=== PATIENT | male | born 1960 | race Caucasian/White ===

== ENCOUNTER 2017-01-16 23:50 | Inpatient (IN) | payer MEDICAID, OTHER ==
[~2017-01-16] VITALS: Ht 182.9 cm; Wt 126.6 kg
[~2017-01-16 23:50] MED LIST: ASPI-1159 PO; CYMBALTA PO; DIVA500T3 PO; FLUO40CA8 PO; HYDR50CA PO; LISINOPRIL PO; OMEPRAZOLE PO; QUET400T PO
[2017-01-17 00:31] LABS: BG BASE EXCESS -6.1 mmol/L (-2.0-2.0); BG CARBOXYHEMOGLOBIN 0.3 % (0.5-1.5); BG DEOXYHEMOGLOBIN 8.2 % (0.0-5.0); BG FRACTION INSPIRED OXYGEN 32; BG HCO3 ACT 18.8 mmol/L (22.0-26.0); BG OXYGEN SATURATION 91.8 % (92.0-98.5); BG OXYHEMOGLOBIN 91.5 % (94.0-97.0); BG PCO2 35.2 mmHg (35.0-45.0); BG PH 7.346 (7.350-7.450); BG PO2 72.2 mmHg (75.0-100.0); BG SAMPLE SITE RIGHT RADIAL; BG TOTAL HEMOGLOBIN 11.7 g/dL (12.0-18.0); BG VENT MODE NASAL CANNULA
[2017-01-17 00:34] LABS: EOSINOPHILS % 2.4 % (0.0-5.0); HEMATOCRIT. 33.1 % (42.0-52.0); HEMOGLOBIN. 11.1 g/dL (14.0-18.0); LYMPHOCYTES % 42.7 % (20.0-50.0); MEAN CORPUSCULAR HEMOGLOBIN 27.6 pg (28.0-32.0); MEAN CORPUSCULAR VOLUME 82.5 fL (80.0-94.0); MEAN PLATELET VOLUME 10.4 fl (7.4-10.4); MONOCYTES % 5.2 % (2.0-8.0); NEUTROPHILS % 48.7 % (40.0-76.0); PLATELET 104 x1000/uL (130-400); RED BLOOD CELL COUNT 4.01 mill/uL (4.7-6.1); RED CELL DISTRIBUTION WIDTH 14.9 % (11.6-14.6)
[2017-01-17 00:40] LABS: INR 1.1; PROTHROMBIN TIME 11.7 sec (9.4-11.6)
[2017-01-17 00:49] LABS: CARBON DIOXIDE 22 mEq/L (21-32); CHLORIDE 107 mEq/L (98-107); ETHANOL BLOOD 23 mg/dL; TROPONIN I < 0.02 ng/mL (0.00-0.04)
[2017-01-17 01:53] LABS: *AMPHETAMINES SCREEN URINE NEGATIVE (NEGATIVE); *BARBITURATES SCREEN URINE NEGATIVE (NEGATIVE); *BENZODIAZEPINES SCREEN URINE PRESUMTIVE POSITIVE (NEGATIVE); *COCAINE SCREEN URINE NEGATIVE (NEGATIVE); CANNABINOID URINE SCREEN NEGATIVE (NEGATIVE); METHADONE URINE SCREEN NEGATIVE (NEGATIVE); OPIATES URINE SCREEN NEGATIVE (NEGATIVE); PHENCYCLIDINE URINE SCREEN NEGATIVE (NEGATIVE)
[2017-01-17] MEDS ORDERED: ALBUTEROL (0.5%) 2.5MG/0.5ML NEB HHN ONE (02:15)
[2017-01-17] MEDS ORDERED: METHYLPREDNISOLONE SOD SUCC 125 MG/2 ML VIAL IV ONE (02:15)
[2017-01-17 04:30] VITALS: BP 125/88
[2017-01-17 06:06] VITALS: BP 125/88
[2017-01-17 08:00] VITALS: BP 123/82
[2017-01-17] MEDS ORDERED: ONDANSETRON HCL 4MG/2ML VIAL IV PRN (11:45)
[2017-01-17] MEDS ORDERED: IPRATROPIUM/ALBUTEROL 0.5-3(2.5)MG/3ML NEB INH PRN (11:45)
[2017-01-17] MEDS ORDERED: ACETAMINOPHEN 325MG TABLET PO PRN (11:45)
[2017-01-17 12:00] VITALS: BP 119/80
[2017-01-17] MEDS: IPRATROPIUM/ALBUTEROL 0.5-3(2.5)MG/3ML NEB HHN SCH ×3 (12:50→20:55)
[2017-01-17] MEDS: ENOXAPARIN 40MG/0.4ML SYR SUBCUT SCH (13:21)
[2017-01-17] MEDS: METHYLPREDNISOLONE SOD SUCC 125 MG/2 ML VIAL IV SCH ×2 (13:21→22:24)
[2017-01-17] MEDS: SODIUM CHLORIDE 0.9% 1,000 ML IV SCH (13:22)
[2017-01-17] MEDS: HYDROCODONE/ACETAMINOPHEN 5/325MG TABLET PO PRN ×2 (14:20→22:23)
[2017-01-17 14:25] LABS: CLARITY URINE CLEAR (CLEAR); COLOR URINE YELLOW (YELLOW); GLUCOSE URINE NEGATIVE (NEGATIVE); KETONES URINE 1+ (NEGATIVE); LEUKOCYTE ESTERASE URINE NEGATIVE (NEGATIVE); NITRITE URINE NEGATIVE (NEGATIVE); OCCULT BLOOD URINE NEGATIVE (NEGATIVE); PROTEIN URINE NEGATIVE (NEGATIVE); SPECIFIC GRAVITY URINE 1.025 (1.005-1.030); UROBILINOGEN URINE 0.2 E.U./dL (0.2-1.0)
[2017-01-17 16:00] VITALS: BP 129/85
[2017-01-17 20:00] VITALS: BP 124/77
[2017-01-17 20:08] LABS: *AMPHETAMINES SCREEN URINE NEGATIVE (NEGATIVE); *BARBITURATES SCREEN URINE NEGATIVE (NEGATIVE); *BENZODIAZEPINES SCREEN URINE PRESUMTIVE POSITIVE (NEGATIVE); *COCAINE SCREEN URINE NEGATIVE (NEGATIVE); CANNABINOID URINE SCREEN NEGATIVE (NEGATIVE); METHADONE URINE SCREEN NEGATIVE (NEGATIVE); OPIATES URINE SCREEN NEGATIVE (NEGATIVE); PHENCYCLIDINE URINE SCREEN NEGATIVE (NEGATIVE)
[2017-01-18] VITALS: BP 126/81
[2017-01-18] MEDS: IPRATROPIUM/ALBUTEROL 0.5-3(2.5)MG/3ML NEB HHN SCH ×4 (01:10→11:54)
[2017-01-18] MEDS ORDERED: ZOLPIDEM TARTRATE 5MG TABLET PO PRN (01:45)
[2017-01-18] MEDS: GUAIFENESIN 200MG/10ML SUGAR FREE UDC PO PRN ×2 (02:27→17:02)
[2017-01-18] MEDS: SODIUM CHLORIDE 0.9% 1,000 ML IV SCH ×2 (02:28→11:59)
[2017-01-18] MEDS: METHYLPREDNISOLONE SOD SUCC 125 MG/2 ML VIAL IV SCH ×3 (05:43→21:54)
[2017-01-18] MEDS: HYDROCODONE/ACETAMINOPHEN 5/325MG TABLET PO PRN ×3 (05:43→20:14)
[2017-01-18 06:48] LABS: BASOPHILS % 0.1 % (0.0-2.0); HEMATOCRIT. 34.4 % (42.0-52.0); HEMOGLOBIN. 11.3 g/dL (14.0-18.0); LYMPHOCYTES % 7.7 % (20.0-50.0); MEAN CORPUSCULAR HEMOGLOBIN 26.9 pg (28.0-32.0); MEAN CORPUSCULAR VOLUME 81.5 fL (80.0-94.0); MEAN PLATELET VOLUME 10.7 fl (7.4-10.4); MONOCYTES % 3.1 % (2.0-8.0); NEUTROPHILS % 89.1 % (40.0-76.0); PLATELET 109 x1000/uL (130-400); RED BLOOD CELL COUNT 4.21 mill/uL (4.7-6.1); RED CELL DISTRIBUTION WIDTH 15.1 % (11.6-14.6)
[2017-01-18 07:21] LABS: CARBON DIOXIDE 26 mEq/L (21-32); CHLORIDE 106 mEq/L (98-107)
[2017-01-18 08:00] VITALS: BP 131/71
[2017-01-18 12:00] VITALS: BP 135/63
[2017-01-18] MEDS: ENOXAPARIN 40MG/0.4ML SYR SUBCUT SCH (12:00)
[2017-01-18] MEDS: IPRATROPIUM BROMIDE (0.02%) 0.5MG/2.5ML NEB HHN SCH ×2 (15:58→20:39)
[2017-01-18 16:00] VITALS: BP 120/78
[2017-01-18] MEDS: MORPHINE SULFATE 4 MG/ML CPJ (NOT FOR IM USE) IV PRN (19:02)
[2017-01-18 20:08] VITALS: BP 132/96
[2017-01-18] MEDS: THROAT LOZENGES-BENZOCAINE/MENTH/CETYLPYRD CL LOZENGES MM PRN (20:19)
[2017-01-18] MEDS: KETOROLAC 30MG/ML VIAL IV SCH (21:55)
[2017-01-19] VITALS: BP 136/90
[2017-01-19] MEDS: IPRATROPIUM BROMIDE (0.02%) 0.5MG/2.5ML NEB HHN SCH ×5 (00:24→15:49)
[2017-01-19] MEDS: MORPHINE SULFATE 4 MG/ML CPJ (NOT FOR IM USE) IV PRN ×3 (00:52→13:01)
[2017-01-19 04:00] VITALS: BP 133/88
[2017-01-19] MEDS: SODIUM CHLORIDE 0.9% 1,000 ML IV SCH (05:33)
[2017-01-19] MEDS: THROAT LOZENGES-BENZOCAINE/MENTH/CETYLPYRD CL LOZENGES MM PRN (05:33)
[2017-01-19] MEDS: HYDROCODONE/ACETAMINOPHEN 5/325MG TABLET PO PRN ×2 (05:34→10:07)
[2017-01-19] MEDS: KETOROLAC 30MG/ML VIAL IV SCH ×2 (05:34→15:15)
[2017-01-19] MEDS: METHYLPREDNISOLONE SOD SUCC 125 MG/2 ML VIAL IV SCH ×2 (05:35→15:15)
[2017-01-19 08:00] VITALS: BP 139/93
[2017-01-19] MEDS: GUAIFENESIN 200MG/10ML SUGAR FREE UDC PO PRN (10:07)
[2017-01-19 12:00] VITALS: BP 129/75
[2017-01-19] MEDS: ENOXAPARIN 40MG/0.4ML SYR SUBCUT SCH (12:00)
[2017-01-19 16:00] VITALS: BP 139/84
[2017-01-19 16:53] VITALS: BP 139/84
== END 2017-01-19 17:30 | disposition home or self-care (01) | DRG 140 ==
LOC: ER 23:50 → 5WST 01-17 02:38 → ENRESERV 01-17 03:04
PROVIDERS: ADMIT Internal Medicine; ATTEND Internal Medicine
DX: J44.1 Chronic obstructive pulmonary disease with (acute) exacerbation (principal); J96.00 Acute respiratory failure, unspecified whether with hypoxia or hypercapnia; N17.9 Acute kidney failure, unspecified; E44.0 Moderate protein-calorie malnutrition; D68.9 Coagulation defect, unspecified; K74.60 Unspecified cirrhosis of liver; B19.20 Unspecified viral hepatitis C without hepatic coma; I10 Essential (primary) hypertension; F99 Mental disorder, not otherwise specified; D63.8 Anemia in other chronic diseases classified elsewhere; D69.6 Thrombocytopenia, unspecified; Z87.891 Personal history of nicotine dependence; Z79.82 Long term (current) use of aspirin; Z79.899 Other long term (current) drug therapy; Z89.021 Acquired absence of right finger(s); Z68.37 Body mass index [BMI] 37.0-37.9, adult
CPT/HCPCS: 36415; 36600; 71010; 76700; 80048; 80053; 80305; 81003; 82375; 82805; 83880; 84484; 85025; 85610; 87804; 93005; 94640; 94664; 96374; 99285; G0482; J1650; J1885; J2270; J2930; J7030; J7611; J7620

== ENCOUNTER 2017-01-25 00:03 | Emergency (ER) | payer OTHER ==
[~2017-01-25] VITALS: Ht 182.9 cm; Wt 122.0 kg
[2017-01-25] MEDS ORDERED: ALBUTEROL (0.083%) 2.5MG/3ML NEB HHN STA (01:26)
[2017-01-25] MEDS ORDERED: IPRATROPIUM BROMIDE (0.02%) 0.5MG/2.5ML NEB HHN STA (01:26)
[2017-01-25] MEDS ORDERED: MORPHINE SULFATE 4 MG/ML CPJ (NOT FOR IM USE) IV ONE (01:30)
[2017-01-25] MEDS ORDERED: ONDANSETRON HCL 4MG/2ML VIAL IV ONE (01:30)
[2017-01-25 01:44] LABS: BASOPHILS % 0.4 % (0.0-2.0); EOSINOPHILS % 2.7 % (0.0-5.0); HEMATOCRIT. 32.4 % (42.0-52.0); HEMOGLOBIN. 10.7 g/dL (14.0-18.0); LYMPHOCYTES % 43.9 % (20.0-50.0); MEAN CORPUSCULAR VOLUME 82.1 fL (80.0-94.0); MEAN PLATELET VOLUME 9.3 fl (7.4-10.4); MONOCYTES % 8.2 % (2.0-8.0); NEUTROPHILS % 44.8 % (40.0-76.0); PLATELET 97 x1000/uL (130-400); RED BLOOD CELL COUNT 3.95 mill/uL (4.7-6.1); RED CELL DISTRIBUTION WIDTH 14.9 % (11.6-14.6)
[2017-01-25 01:57] LABS: CARBON DIOXIDE 29 mEq/L (21-32); CHLORIDE 107 mEq/L (98-107); TROPONIN I < 0.02 ng/mL (0.00-0.04)
[2017-01-25 10:03] VITALS: BP 139/98
== END 2017-01-25 10:29 | disposition home or self-care (01) ==
LOC: ER 00:14
DX: R06.02 Shortness of breath (principal); M79.605 Pain in left leg; I10 Essential (primary) hypertension; E78.00 Pure hypercholesterolemia, unspecified; J44.9 Chronic obstructive pulmonary disease, unspecified; Z79.82 Long term (current) use of aspirin
CPT/HCPCS: 36415; 71010; 80048; 83880; 84484; 85025; 94640; 96374; 96375; 99285; J2270; J2405; J7611; Z7610

== ENCOUNTER 2018-06-10 15:01 | Inpatient (IN) | payer OTHER ==
[~2018-06-10] VITALS: Ht 182.9 cm; Wt 109.8 kg
[~2018-06-10 15:01] MED LIST changes: +CELE200C PO; +ROSU40TA PO
[2018-06-10 18:32] LABS: HEMATOCRIT. 36.1 % (42.0-52.0); HEMOGLOBIN. 11.7 g/dL (14.0-18.0); MEAN CORPUSCULAR HEMOGLOBIN 28.1 pg (28.0-32.0); MEAN CORPUSCULAR VOLUME 86.9 fL (80.0-94.0); MEAN PLATELET VOLUME 10.5 fl (7.4-10.4); PLATELET 133 x1000/uL (130-400); RED BLOOD CELL COUNT 4.15 mill/uL (4.7-6.1)
[2018-06-10 18:37] LABS: CHLORIDE 105 mEq/L (98-107)
[2018-06-10 18:39] LABS: INR 1.1; PARTIAL THROMBOPLASTIN TIME 30.5 sec (23.4-31.0); PROTHROMBIN TIME 10.7 sec (9.1-11.1)
[2018-06-10 18:42] LABS: ETHANOL BLOOD < 10 mg/dL
[2018-06-10] MEDS ORDERED: ASPIRIN 81MG TABLET PO ONE (18:45)
[2018-06-10] MEDS ORDERED: KETOROLAC 15MG/ML VIAL IV ONE (18:45)
[2018-06-10 19:23] LABS: PLATELET ESTIMATE NORMAL
[2018-06-10] MEDS ORDERED: HYDROCODONE/ACETAMINOPHEN 5/325MG TABLET PO ONE (20:45)
[2018-06-11] VITALS (7 sets, daily range): BP systolic 89–148; BP diastolic 46–67
[2018-06-11 07:12] LABS: HEMATOCRIT. 34.9 % (42.0-52.0); HEMOGLOBIN. 11.3 g/dL (14.0-18.0); MEAN CORPUSCULAR HEMOGLOBIN 28.6 pg (28.0-32.0); MEAN CORPUSCULAR VOLUME 88.2 fL (80.0-94.0); MEAN PLATELET VOLUME 10.5 fl (7.4-10.4); PLATELET 114 x1000/uL (130-400); RED BLOOD CELL COUNT 3.96 mill/uL (4.7-6.1); RED CELL DISTRIBUTION WIDTH 15.9 % (11.6-14.6)
[2018-06-11 07:34] LABS: CHLORIDE 105 mEq/L (98-107)
[2018-06-11 07:41] LABS: CREATINE KINASE 101 IU/L (39-308)
[2018-06-11 07:44] LABS: CREATINE KINASE MB FRACTION 1.2 ng/mL (0.5-3.6)
[2018-06-11] MEDS ORDERED: KETOROLAC 30MG/ML VIAL IV PRN (08:30)
[2018-06-11] MEDS ORDERED: HYDROXYZINE PAMOATE PO SCH (09:00)
[2018-06-11] MEDS ORDERED: MEDICATION NOT ON FORMULARY EA (Fluoxetine Hcl (Prozac) 1 CAP) PO SCH (09:00)
[2018-06-11] MEDS ORDERED: CELECOXIB 200MG CAPSULE PO SCH (09:00)
[2018-06-11] MEDS ORDERED: MEDICATION NOT ON FORMULARY EA (Aspirin (Aspirin Low Dose) 1 TAB) PO SCH (09:00)
[2018-06-11] MEDS ORDERED: LISINOPRIL 10MG TABLET PO SCH (09:30)
[2018-06-11 09:53] LABS: PLATELET ESTIMATE SLIGHTLY DECREASED
[2018-06-11] MEDS ORDERED: DEXT 5%/0.45% NACL 500ML 500 ML IV ONE (10:00)
[2018-06-11] MEDS: ASPIRIN 81MG TABLET PO SCH (10:17)
[2018-06-11] MEDS ORDERED: DIVALPROEX SODIUM 500MG ER TABLET PO SCH (12:00)
[2018-06-11] MEDS: DIVALPROEX SODIUM 250MG DR TABLET PO SCH ×2 (12:19→19:08)
[2018-06-11] MEDS: HYDROCODONE/ACETAMINOPHEN 5/325MG TABLET PO PRN ×2 (12:19→16:45)
[2018-06-11] MEDS: HYDROXYZINE 25MG TABLET PO SCH ×2 (12:19→19:08)
[2018-06-11] MEDS: FLUOXETINE HCL 20MG CAPSULE PO SCH (14:23)
[2018-06-11] MEDS: GUAIFENESIN 200MG/10ML SUGAR FREE UDC PO PRN (15:02)
[2018-06-11 16:00] LABS: CREATINE KINASE 87 IU/L (39-308)
[2018-06-11 16:02] LABS: CREATINE KINASE MB FRACTION 1.2 ng/mL (0.5-3.6)
[2018-06-11] MEDS ORDERED: QUETIAPINE FUMARATE 600 MG PO SCH (17:00)
[2018-06-11] MEDS ORDERED: QUETIAPINE FUMARATE PO SCH (17:00)
[2018-06-11 17:33] LABS: BG BASE EXCESS -6.7 mmol/L (-2.0-2.0); BG CARBOXYHEMOGLOBIN 0.3 % (0.5-1.5); BG DEOXYHEMOGLOBIN 9.3 % (0.0-5.0); BG HCO3 ACT 16.9 mmol/L (22.0-26.0); BG METHEMOGLOBIN 0.1 % (0.0-1.5); BG OXYGEN SATURATION 90.7 % (92.0-98.5); BG OXYHEMOGLOBIN 90.3 % (94.0-97.0); BG PCO2 28.1 mmHg (35.0-45.0); BG PH 7.397 (7.350-7.450); BG PO2 63.7 mmHg (75.0-100.0); BG SAMPLE SITE RIGHT RADIAL; BG TOTAL HEMOGLOBIN 11.1 g/dL (12.0-18.0); BG VENT MODE ROOM AIR
[2018-06-11] MEDS ORDERED: AMITRIPTYLINE 25MG TABLET PO SCH (21:00)
[2018-06-12] VITALS (9 sets, daily range): BP systolic 72–120; BP diastolic 47–60
[2018-06-12 00:14] LABS: CREATINE KINASE 69 IU/L (39-308)
[2018-06-12 00:15] LABS: CREATINE KINASE MB FRACTION 1.2 ng/mL (0.5-3.6)
[2018-06-12] MEDS: SODIUM CHLORIDE 0.9% 1,000 ML IV SCH ×3 (00:51→14:41)
[2018-06-12] MEDS ORDERED: IPRATROPIUM/ALBUTEROL 0.5-3(2.5)MG/3ML NEB HHN PRN (01:00)
[2018-06-12] MEDS: GUAIFENESIN 200MG/10ML SUGAR FREE UDC PO PRN (02:10)
[2018-06-12 06:10] LABS: CLARITY URINE TURBID (CLEAR); COLOR URINE DARK YELLOW (YELLOW); KETONES URINE TRACE (NEGATIVE); LEUKOCYTE ESTERASE URINE 3+ (NEGATIVE); NITRITE URINE NEGATIVE (NEGATIVE); OCCULT BLOOD URINE 3+ (NEGATIVE); PROTEIN URINE 3+ (NEGATIVE)
[2018-06-12] MEDS ORDERED: OMEPRAZOLE 20MG CAPSULE EXTENDED RELEASE PO SCH (06:45)
[2018-06-12 08:26] LABS: HEMATOCRIT. 32.7 % (42.0-52.0); HEMOGLOBIN. 10.4 g/dL (14.0-18.0); MEAN CORPUSCULAR HEMOGLOBIN 28.1 pg (28.0-32.0); MEAN CORPUSCULAR VOLUME 88.2 fL (80.0-94.0); MEAN PLATELET VOLUME 9.9 fl (7.4-10.4); PLATELET 104 x1000/uL (130-400); RED BLOOD CELL COUNT 3.71 mill/uL (4.7-6.1); RED CELL DISTRIBUTION WIDTH 16.7 % (11.6-14.6)
[2018-06-12 08:30] LABS: CHLORIDE 102 mEq/L (98-107)
[2018-06-12 08:36] LABS: PHOSPHORUS 5.7 mg/dL (2.5-4.9)
[2018-06-12 09:30] LABS: PLATELET ESTIMATE DECREASED
[2018-06-12] MEDS ORDERED: SODIUM POLYSTYRENE SULFONATE 15 G/60 ML BOT PO NR (10:00)
[2018-06-12] MEDS: FLUOXETINE HCL 20MG CAPSULE PO SCH (10:55)
[2018-06-12] MEDS: ASPIRIN 81MG TABLET PO SCH (10:55)
[2018-06-12] MEDS: HYDROXYZINE 25MG TABLET PO SCH ×3 (10:55→17:38)
[2018-06-12] MEDS: DIVALPROEX SODIUM 250MG DR TABLET PO SCH ×2 (10:55→17:38)
[2018-06-12] MEDS: CITRIC ACID/SODIUM CITRATE SOLN 30ML UDC PO SCH ×3 (10:56→17:38)
[2018-06-12] MEDS: HYDROCODONE/ACETAMINOPHEN 5/325MG TABLET PO PRN ×2 (10:56→17:45)
[2018-06-12] MEDS ORDERED: CEFEPIME 1,000 MG in DEXTROSE 5% WATER 50 ML IV SCH (13:00)
[2018-06-12] MEDS ORDERED: ALBUMIN HUMAN 25GM/500ML (5%) IV SCH (13:00)
[2018-06-12] MEDS ORDERED: VANCOMYCIN 2,000 MG in DEXT 5% WATER 500 ML IV SCH (14:00)
== END 2018-06-12 18:40 | disposition short-term general hospital (02) | DRG 720 ==
LOC: ER 15:01 → 5WST 18:56 → ENRESERV 22:24
PROVIDERS: ADMIT Internal Medicine; ATTEND Internal Medicine
DX: A41.50 Gram-negative sepsis, unspecified (principal); N17.0 Acute kidney failure with tubular necrosis; G93.40 Encephalopathy, unspecified; E44.0 Moderate protein-calorie malnutrition; D69.6 Thrombocytopenia, unspecified; E87.5 Hyperkalemia; G90.8 Other disorders of autonomic nervous system; F20.9 Schizophrenia, unspecified; K74.60 Unspecified cirrhosis of liver; D64.9 Anemia, unspecified; E78.5 Hyperlipidemia, unspecified; R29.6 Repeated falls; E86.0 Dehydration; E66.09 Other obesity due to excess calories; F31.9 Bipolar disorder, unspecified; E78.00 Pure hypercholesterolemia, unspecified; N39.0 Urinary tract infection, site not specified; J44.9 Chronic obstructive pulmonary disease, unspecified; M19.90 Unspecified osteoarthritis, unspecified site; R26.0 Ataxic gait; F19.10 Other psychoactive substance abuse, uncomplicated; N18.9 Chronic kidney disease, unspecified; I12.9 Hypertensive chronic kidney disease with stage 1 through stage 4 chronic kidney disease, or unspecified chronic kidney disease; Z82.49 Family history of ischemic heart disease and other diseases of the circulatory system; Z68.33 Body mass index [BMI] 33.0-33.9, adult; Z79.82 Long term (current) use of aspirin; Z79.899 Other long term (current) drug therapy; Z87.891 Personal history of nicotine dependence
CPT/HCPCS: 36415; 36600; 70544; 70553; 71045; 73030; 76700; 80048; 82140; 82375; 82550; 82553; 82805; 83735; 83880; 83935; 84100; 84484; 87077; 87186; 87804; 93005; 93306; 93880; 94640; 96374; 97163; 97166; 97530; 99285; C1893; J0692; J1885; J3370; J7030; J7060; J7620; P9041; A4315